=== PATIENT | female | born 1960 | race Caucasian/White ===

== ENCOUNTER → 2017-01-16 | Outpatient (CLI) | payer SELFPAY ==
[2014-06-04 13:56] VITALS: BP 174/92
[~2017-01-16] MED LIST: CHILDREN'S ASPI81 M1 PO; FLOMAX0.4 MG PO; METOPROLOL TART25 MG PO; NITROSTAT0.4 MG/TAB SL; NORVASC5 MG PO; PRILOSEC 20MG20 MG PO; TYLENOL 325MG325 MG PO; ULTRAM 50MG TAB50 MG PO
== END ==
LOC: RAD 09:14
DX: M25.561 Pain in right knee (principal); M17.11 Unilateral primary osteoarthritis, right knee

== ENCOUNTER → 2017-04-30 | Outpatient (CLI) | payer SELFPAY ==
[2014-06-04 13:56] VITALS: BP 174/92
== END ==
LOC: LAB 08:39
DX: E04.1 Nontoxic single thyroid nodule (principal)